=== PATIENT | female | born 1975 | race African-American/Black ===

== ENCOUNTER → 2017-05-21 | Outpatient (CLI) | payer MEDICAID ==
[2017-05-21 09:50] LABS: Cholesterol 178 mg/dL (< 200); HDL Cholesterol 68 mg/dL (40-59); LDL Cholesterol 111 mg/dL (< 100); Triglycerides 88 mg/dL (< 150)
== END | disposition home or self-care (01) ==
LOC: LAB 09:08
PROVIDERS: ATTEND Specialist
DX: N91.2 Amenorrhea, unspecified (principal); N95.1 Menopausal and female climacteric states
CPT/HCPCS: 36415; 80061; 83001; 83002; 84146; 84403; 84443; 84702